=== PATIENT | male | born 1965 | race African-American/Black ===

== ENCOUNTER 2016-05-27 08:51 | Emergency (ER) | payer OTHER ==
[~2016-05-27] VITALS: Ht 167.6 cm; Wt 63.5 kg
[~2016-05-27 08:51] MED LIST: PREDNISONE10 MG PO
[2016-05-27 08:55] VITALS: BP 149/80
--- NOTE | 2016-05-27 09:20 | ED GENERAL ADULT ---
History of Present Illness General Chief Complaint: Sore Throat, Dental Pain Stated Complaint: SORE THROAT Source: patient Exam Limitations: no limitations Vital Signs & Intake/Output Vital Signs & Intake/Output Vital Signs Date Time Temp Pulse Resp B/P Pulse O2 O2 Flow FiO2 Ox Delivery Rate 05/27 0855 98.5 78 16 149/80 99 Room Air Allergies Coded Allergies: Penicillins (Intermediate, UNKNOWN 05/27/16) venom-honey bee (Intermediate, SWELLING 05/27/16) Uncoded Allergies: FRUITS (Intermediate, THROAT TIGHTNESS, SWELLING 05/27/16) Reconcile Medications Ibuprofen 600 MG TABLET 1 TAB PO Q6 PRN PAIN [MAGIC MOUTHWASH] 2 TSP PO Q4 PRN PHARYNGITIS 1/3 Lidocaine 1/3 maalox 1/3 benadryl Prednisone 20 MG TABLET 1 TAB PO BID PHARYNGITIS Triage Note: COMPLAINS OF SORE THROAT X 2 DAYS Triage Nurses Notes Reviewed? yes HPI: This is a 50-year-old male with chief complaint of throat pain. Patient states that he's had a burning and sore sensation in the left side of his throat for the past 48 hours. He states that the pain is worsened by swallowing and talking. Pain is made better with warm liquids and Tylenol. He denies any fever, nausea, vomiting, diarrhea, cough, runny nose, conjunctivitis. He denies any shortness of breath, difficulty breathing, or choking sensation. He does endorse sick contacts in his young daughter who is had fever and cough for the past week. She was not treated with antibiotics and subsequently improved clinically with conservative treatment. (NATE CAMPA MD) Past History Travel History Traveled to [place] past 21 day No Medical History Any Pertinent Medical History? see below for history Neurological: NONE EENT: NONE Cardiovascular: NONE Respiratory: NONE Gastrointestinal: NONE Hepatic: NONE Renal: NONE Musculoskeletal: NONE Psychiatric: NONE Endocrine: NONE Blood Disorders: NONE Cancer(s): NONE VIDEO GAME TESTER/Reproductive: NONE Surgical History Surgical History: non-contributory Psychosocial History What is your primary language Angolan Tobacco Use: Never used ETOH Use: denies use Illicit Drug Use: denies illicit drug use Family History Hx Contributory? No (NATE CAMPA MD) Review of Systems Review of Systems Constitutional: Denies: chills, diaphoresis, fever, malaise, weakness, unexplained weight loss. EENTM: Reports: throat pain, throat swelling. Denies: blurred vision, double vision, eye pain, eye drainage, ear discharge, ear pain, ear redness, hearing changes, nasal congestion, epistaxis, nasal pain, mouth pain, tooth pain. Respiratory: Denies: cough, hemoptysis, short of breath, sputum production, stridor. Cardiovascular: Denies: chest pain, palpitations. GI: Denies: abdominal pain, constipation, nausea, changes in stool, vomiting. Genitourinary: Reports: no symptoms. Musculoskeletal: Reports: no symptoms. Skin: Reports: no symptoms. (NATE CAMPA MD) Review of Systems Neurological/Psychological: Reports: no symptoms. Hematologic/Endocrine: Reports: no symptoms. Immunologic/Allergic: Reports: no symptoms. All Other Systems: Reviewed and Negative (NALLELY KIDD MD) Physical Exam Physical Exam General Appearance: well developed/nourished, no apparent distress, alert, awake , comfortable Head: atraumatic, normal appearance Eyes: Bilateral: normal appearance, PERRL, EOMI, pale conjunctivae. Ears, Nose, Throat: erythematous pharynx without pharyngeal exudates. Slight swelling noted. Neck: supple, tender lateral, no midline tenderness, no lymphadenopathy Respiratory: normal breath sounds, no respiratory distress, lungs clear Cardiovascular: regular rate/rhythm Gastrointestinal: soft, non-tender Core Measures ACS in differential dx? No CVA/TIA Diagnosis: No Severe Sepsis Present: No Septic Shock Present: No (NATE CAMPA MD) Physical Exam Peripheral Pulses: 4+ carotid (R), 4+ carotid (L) Neurologic/Psych: no motor/sensory deficits, awake, alert, oriented x 3, normal gait Lymphatic: no anterior cervical jostin (NALLELY KIDD MD) Progress Differential Diagnoses I considered the following diagnoses in my evaluation of the patient: [strep, pharyngitis viral, flu] Plan of Care: Orders Procedure Date/time Status THROAT CULTURE W/QUICK STREP 05/27 0856 Active Patient does not meet [facility] criteria and his rapid strep was negative. We will prescribe steroid, Magic mouthwash, and prescription strength ibuprofen for pain control. He is given one dose of 60mg of PO prednisone in ED. Pt d/c from ED to home. Patient is in agreement with plan. (NATE CAMPA MD) Initial ED EKG: none (NATE CAMPA MD) Differential Diagnoses I considered the following diagnoses in my evaluation of the patient: (NALLELY KIDD MD) Departure Departure Time of Disposition: 919 Disposition: HOME OR SELF CARE Condition: Stable Clinical Impression Primary Impression: Pharyngitis Referrals: PATIENT HAS NO PRIMARY CARE DR (PCP/Family) Departure Forms: Customer Survey General Discharge Information Prescriptions: Current Visit Scripts Ibuprofen 1 TAB PO Q6 PRN PAIN #20 Prednisone 1 TAB PO BID #10 TAB [MAGIC MOUTHWASH] 2 TSP PO Q4 PRN PHARYNGITIS Comments You are prescribed magic mouth wash, Ibuprufen and prednisone. No antibiotics. If your symptoms worsen and you have worsening difficulty swallowing or breathing return to ED. (NATE CAMPA MD) Resident Co-Sign Statement Statement: ED Attending supervision documentation- x I saw and evaluated the patient. I have also reviewed all the pertinent lab results and diagnostic results. I agree with the findings and the plan of care as documented in the Resident's documentation. [] I have reviewed the ED Record and agree with the Resident's documentation. [] Additions or exceptions (if any) to the Resident's note and plan are summarized below: [] (NALLELY KIDD MD) Critical Care Note Critical Care Note Critical Care Time: non-applicable (NATE CAMPA MD)
[2016-05-27] MEDS ORDERED: IBUPROFEN600 M1 PO (09:26)
[2016-05-27] MEDS ORDERED: PREDNISONE20 M1 PO (09:26)
[2016-05-27] MEDS ORDERED: MAGIC MOUTHWASH PO (09:26)
== END 2016-05-27 09:33 ==
LOC: ERH 08:51
DX: J02.9 Acute pharyngitis, unspecified (principal)